=== PATIENT | male | born 1960 | race Caucasian/White ===

== ENCOUNTER 2019-11-06 05:12 | Emergency (ER) | payer BC, OTHER ==
--- NOTE | 2019-11-06 05:42 | PDOC ---
History of Present Illness <Betty Byrd - Last Filed: 11/06/19 06:58> - History of Present Illness Initial Comments: 59 yo with no significant PMH presents with a left hand laceration. He was attempting to catch a falling glass cup that shattered in his hand. He has been bleeding continuously from multiple lacerations on the left hand. He endorses numbness at the tip of his left 3rd digit distal to the DIP. He is unsure if any glass is in the hand. <Nam Colbert - Last Filed: 11/07/19 15:56> - General Chief Complaint: Injury Stated Complaint: FINGER LACERATION Review of Systems - Review of Systems Constitutional: No: Chills, Fever HEENTM: No: Recent change in vision, Double Vision Respiratory: No: Cough, Shortness of Breath Cardiac (ROS): No: Chest Pain, Palpitations ABD/GI: No: Diarrhea, Nausea, Vomiting : No: Burning, Dysuria Musculoskeletal: No: Joint Pain, Joint Swelling Integumentary: Yes: Lesions (3 lacerations on left hand). No: Erythema, Flus vivien Neurological: Yes: Numbness (left 3rd digit distal to PIP) Psychiatric: No: Anxiety, Depression, Mood Swings Endocrine: No: Intolerance to Cold, Intolerance to Heat <Nam Colbert - Last Filed: 11/07/19 15:56> *Physical Exam - Vital Signs Last Vital Signs Temp Pulse Resp BP Pulse Ox 98.3 F 82 17 158/91 99 11/06/19 05:31 11/06/19 05:31 11/06/19 05:31 11/06/19 05:31 11/06/19 05:31 <Betty Byrd - Last Filed: 11/06/19 06:58> - Physical Exam General Appearance: Yes: Appropriately Dressed, Apparent Distress HEENT: positive: EOMI, Normal Voice Respiratory/Chest: positive: Lungs Clear, Normal Breath Sounds. negative: Respiratory Distress Cardiovascular: positive: Regular Rhythm, Regular Rate, S1, S2 Gastrointestinal/Abdominal: positive: Normal Bowel Sounds, Flat, Soft. negative: Tender Extremity: positive: Other (1 laceration of left middle finger that has pulsatile bleeding. 1 laceration on 4th digit. 1 laceration on palm. ) Integumentary: positive: Normal Color, Dry, Warm Neurologic: positive: Fully Oriented, Alert, Normal Mood/Affect <Nam Colbert - Last Filed: 11/07/19 15:56> Medical Decision Making - Medical Decision Making 59 yo male presents with hand laceration Tx with tetanus vaccine Xray of hand shows no foreign bodies. Pt advised on the need of a hand surgeon to evaluate and repair the hand. Pt states he wants to drive himself rather than being transported. He will be leaving AMA after imaging and vaccine have been done to seek further evaluation at [facility]. 11/07/19 15:56 <Nam Colbert - Last Filed: 11/07/19 15:56> Discharge - Discharge Information Problems reviewed: Yes - Admission No <Betty Byrd - Last Filed: 11/06/19 06:58> - Discharge Information Problems reviewed: Yes - Admission No <Nam Colbert - Last Filed: 11/07/19 15:56> - Discharge Information Clinical Impression/Diagnosis: Finger laceration Condition: Stable Disposition: AGAINST MEDICAL ADVICE - Patient Discharge Instructions Additional Instructions: You were seen here for multiple finger lacerations. During your evaluation, there was concern for nerve and blood supply involvement of your hand that will need evaluation by a hand specialist. It is recommended that you be transferred to [facility] for further evaluation. You have decided to leave the hospital against medical advise. You understand that the risks of leaving include worsening bleeding from the hand, worsening numbness, sensory losses or permanent disability. You have agreed to proceed from this facility to [facility]. Return to the ER if you develop worsening pain, swelling, pus, drainage, redness, numbness or tingling or any other concerning symptoms.
--- NOTE | 2019-11-06 05:44 | PDOC ---
Attending Attestation - Resident Resident Name: Nam Colbert - ED Attending Attestation I have performed the following: I have examined & evaluated the patient, The case was reviewed & discussed with the resident, I agree w/resident's findings & plan, Exceptions are as noted - HPI HPI: 11/12/19 21:14 See resident HPI - Physicial Exam PE: 11/12/19 21:14 Agree with documented exam - Medical Decision Making 11/12/19 21:23 Persistent pulsatile bleeding from glass laceration to L middle finger with distal numbness, not hemostatic even after direct pressure. Hemostatic with dressing in place xr for fb hand consult dispo per clinical course Patient refusing transport for evaluation with a hand surgeon. We had extensive discussion about the risks of not seeking further care and leaving before evaluation was complete. Patient is alert, oriented, appropriately responsive and interactive. Patient states he understands the risks and that he desires further evaluation but insists on not going in an ambulance. Pt left AMA stating that he would drive himself to [facility] for further evaluation Discharge - Discharge Information Problems reviewed: Yes Clinical Impression/Diagnosis: Finger laceration Condition: Stable Disposition: AGAINST MEDICAL ADVICE - Follow up/Referral - Patient Discharge Instructions Additional Instructions: You were seen here for multiple finger lacerations. During your evaluation, there was concern for nerve and blood supply involvement of your hand that will need evaluation by a hand specialist. It is recommended that you be transferred to [facility] for further evaluation. You have decided to leave the hospital against medical advise. You understand that the risks of leaving include worsening bleeding from the hand, worsening numbness, sensory losses or permanent disability. You have agreed to proceed from this facility to [facility]. Return to the ER if you develop worsening pain, swelling, pus, drainage, redness, numbness or tingling or any other concerning symptoms. - Post Discharge Activity
[2019-11-06 05:51] VITALS: BP 158/91; PULSE 82; TEMP 98.3; BMI 33.4
[2019-11-06] MEDS ORDERED: TETANUS AND DIPHTHERIA TOXOID 0.5 ML DISP.SYRIN IM ONE (05:55)
[2019-11-06] MEDS ORDERED: DIPHTH,PERTUSS(ACELL),TET 0.5 ML DISP.SYRIN IM ONE (06:04)
== END 2019-11-06 07:05 | disposition left against medical advice (07) ==
LOC: JER 05:12
PROC: 3E0234Z Introduction of Serum, Toxoid and Vaccine into Muscle, Percutaneous Approach (ICD-10-PCS; principal; 2019-11-06)
DX: S61.211A Laceration without foreign body of left index finger without damage to nail, initial encounter (principal)
CPT/HCPCS: 73130-TC-LT-FY; 99283-25